=== PATIENT | female | born 1990 | race Two or more races ===

== ENCOUNTER 2022-11-24 12:21 | Observation (INO) | payer MEDICAID ==
[2022-11-24] MEDS ORDERED: PREN-96 PO (13:40)
== END 2022-11-24 14:08 | disposition home or self-care (01) ==
LOC: UNDOADMOB 12:21 → LDRP 12:21 → UNDODISOB 14:08
PROVIDERS: ADMIT Obstetrics & Gynecology; ATTEND Obstetrics & Gynecology
DX: O24.419 Gestational diabetes mellitus in pregnancy, unspecified control (principal); Z3A.38 38 weeks gestation of pregnancy
CPT/HCPCS: 59025; 76818; 81002; 94760; G0378

== ENCOUNTER 2022-11-27 10:03 | Observation (INO) | payer MEDICAID ==
[~2022-11-27 10:03] MED LIST: PREN-96 PO
== END 2022-11-27 11:25 | disposition home or self-care (01) ==
LOC: LDRP 10:03
PROVIDERS: ADMIT Obstetrics & Gynecology; ATTEND Obstetrics & Gynecology
DX: Z34.83 Encounter for supervision of other normal pregnancy, third trimester (principal); Z3A.38 38 weeks gestation of pregnancy
CPT/HCPCS: 59025; 94760; G0378

== ENCOUNTER 2022-11-28 10:00 | Inpatient (IN) | payer MEDICAID ==
[2022-11-27 11:10] LABS: Basophils # (auto) 0.1 10 ^3/uL (0-0.2); Eosinophils # (auto) 0.1 10 ^3/uL (0-0.8); Monocytes # (auto) 0.4 10 ^3/uL (0-1.3); Monocytes % (auto) 5.1 % (0.0-12.0); White Blood Cell 7.3 10^3/uL (4.4-10.8)
[2022-11-27 11:12] LABS: Basophils % (auto) 0.7 % (0.0-2.0); Eosinophils % (auto) 1.3 % (0.0-7.0); Hematocrit 31.1 % (36.0-46.0); Hemoglobin 9.8 g/dL (12.2-16.2); Lymphocytes # (auto) 2.1 10 ^3/uL (0.4-5.4); Mean Corpuscular Hemoglobin 24.4 pg (28.0-32.0); Mean Corpuscular Hgb Conc. 31.6 g/dL (32.0-36.0); Mean Corpuscular Volume 77.1 fL (80.0-100.0); Neutrophils # (auto) 4.6 10 ^3/uL (1.6-8.6); Neutrophils % (auto) 63.9 % (37.0-80.0); Nucleated Red Blood Cells % 0.2 %; Red Blood Cells 4.04 10^6/uL (4.0-5.20); Red Cell Distribution Width 19.3 % (11.8-14.3)
[2022-11-27 11:41] LABS: Urine Bacteria FEW /hpf (None Seen); Urine Blood Negative /uL (Negative); Urine Mucus FEW (None Seen); Urine Specific Gravity 1.017 (1.001-1.035); Urine WBC 13 /hpf (0 - 5)
[2022-11-27 11:44] LABS: Albumin 2.3 g/dL (3.4-5.0); Calcium 8.4 mg/dL (8.5-10.1); Potassium 4.2 mmol/L (3.5-5.1)
[2022-11-27 11:47] LABS: Alcohol, Urine < 3.0 mg/dL (0-10); Amphetamine Screen, Urine NEGATIVE (NEGATIVE); BUN/Creatinine Ratio 16.4; Barbiturate Scree,Urine NEGATIVE (NEGATIVE); Benzodiazephine Screen, Urine NEGATIVE (NEGATIVE); Bilirubin, Total 0.4 mg/dL (0.2-1.0); Cannabinoid Screen, Urine NEGATIVE (NEGATIVE); Cocaine Screen, Urine NEGATIVE (NEGATIVE); Opiate Scree,Urine NEGATIVE (NEGATIVE); Phencyclidine Screen, Urine NEGATIVE (NEGATIVE); Total Protein 6.4 g/dL (6.4-8.2)
[2022-11-27 11:58] LABS: INR 0.87 (0.9-1.15); Partial Thromboplastin Time 26.4 sec (24.6-33.4)
[2022-11-28] VITALS (10 sets, daily range): BP systolic 90–113; BP diastolic 49–77
[~2022-11-28] VITALS: Ht 152.4 cm; Wt 90.7 kg
[2022-11-28] MEDS ORDERED: ceFAZolin 2 GM/D5W100ml 100 ML IV ONE (14:15)
[2022-11-28] MEDS ORDERED: LACTATED RINGER'S 1,000 ML IV SCH (14:15)
[2022-11-28] MEDS ORDERED: SODIUM CITR/CITRIC ACID ORAL SOLN 30 ML PO ONE (14:15)
[2022-11-28] MEDS ORDERED: LACTATED RINGER'S 1,000 ML IV ONE (14:15)
[2022-11-28] MEDS ORDERED: MORPHINE SULF PF 5 MG/10 ML VIAL ONE (16:02)
[2022-11-28] MEDS ORDERED: ONDANSETRON HCL 4 MG/2 ML VIAL IV PRN ×2 (16:15→17:45)
[2022-11-28] MEDS ORDERED: MORPHINE SULFATE 4 MG/ML SYR/VIAL IV PRN (16:15)
[2022-11-28] MEDS ORDERED: LACT. RINGERS/OXYTOCIN 20UNITS 1,000 ML IV SCH (16:15)
[2022-11-28] MEDS ORDERED: ACETAMINOPHEN IV 1000 MG/100ML (10MG/ML) IV PRN (16:15)
[2022-11-28] MEDS ORDERED: CLINDAMYCIN 900MG IV 50 ML IV ONE (16:15)
[2022-11-28] MEDS ORDERED: fentaNYL CITRATE 100 MCG/2 ML VL ONE ×2 (16:57→17:03)
[2022-11-28] MEDS ORDERED: ONDANSETRON HCL 4 MG/2 ML VIAL ONE (17:29)
[2022-11-28] MEDS ORDERED: oxyTOCIN 10 UNIT/ML 10ML VIAL ONE (17:29)
[2022-11-28] MEDS ORDERED: ePHEDrine SULFATE 50 MG/ML AMP ONE (17:29)
[2022-11-28] MEDS ORDERED: KETAMINE HCL 10 ML ONE (17:30)
[2022-11-28] MEDS ORDERED: NALOXONE HCL 0.4 MG/ML VIAL IV PRN (17:45)
[2022-11-28] MEDS ORDERED: NALBUPHINE HCL 10 MG/1ml INJECTION SUBCUT ONE (17:45)
[2022-11-28] MEDS ORDERED: KETOROLAC TROMETH 30 MG/ML 1ML VIAL IV PRN (17:45)
[2022-11-28] MEDS ORDERED: HYDROmorphone HCL 2 MG/ML VL/or syr IV PRN (17:45)
[2022-11-28] MEDS ORDERED: diphenhdrAMINE HCL 50 MG/1 ML VL IV PRN (17:45)
[2022-11-28] MEDS ORDERED: DexAMETHasone SOD PHOS 10MG/1ML VIAL INJ IV PRN (17:45)
[2022-11-28 19:36] LABS: Basophils # (auto) 0 10 ^3/uL (0-0.2); Basophils % (auto) 0.4 % (0.0-2.0); Eosinophils # (auto) 0 10 ^3/uL (0-0.8); Hemoglobin 9.2 g/dL (12.2-16.2); Monocytes # (auto) 0.3 10 ^3/uL (0-1.3); Nucleated Red Blood Cells % 0.1 %
[2022-11-28 19:39] LABS: Eosinophils % (auto) 0.3 % (0.0-7.0); Lymphocytes # (auto) 1.4 10 ^3/uL (0.4-5.4); Lymphocytes % (auto) 15.1 % (10.0-50.0); Mean Corpuscular Hgb Conc. 31.7 g/dL (32.0-36.0); Neutrophils # (auto) 7.3 10 ^3/uL (1.6-8.6); Neutrophils % (auto) 81.2 % (37.0-80.0); Red Blood Cells 3.66 10^6/uL (4.0-5.20); Red Cell Distribution Width 20.7 % (11.8-14.3)
[2022-11-28] MEDS: LACTATED RINGER'S 1,000 ML IV SCH (23:03)
[2022-11-28] MEDS: ceFAZolin 1GM/50ML 50 ML IV SCH (23:13)
[2022-11-29] VITALS (19 sets, daily range): BP systolic 87–109; BP diastolic 46–72
[2022-11-29] MEDS: LACTATED RINGER'S 1,000 ML IV SCH ×2 (00:15→05:44)
[2022-11-29] MEDS ORDERED: ACETAMINOPHEN IV 1000 MG/100ML (10MG/ML) IV PRN (01:00)
[2022-11-29] MEDS: ceFAZolin 1GM/50ML 50 ML IV SCH ×2 (07:02→14:57)
[2022-11-29 07:41] LABS: Basophils # (auto) 0 10 ^3/uL (0-0.2); Eosinophils # (auto) 0 10 ^3/uL (0-0.8); Eosinophils % (auto) 0.5 % (0.0-7.0); Lymphocytes # (auto) 1.6 10 ^3/uL (0.4-5.4); Monocytes # (auto) 0.4 10 ^3/uL (0-1.3); Monocytes % (auto) 4.7 % (0.0-12.0); Nucleated Red Blood Cells % 0.1 %
[2022-11-29 07:43] LABS: Basophils % (auto) 0.5 % (0.0-2.0); Hematocrit 25.2 % (36.0-46.0); Hemoglobin 8.3 g/dL (12.2-16.2); Lymphocytes % (auto) 18.8 % (10.0-50.0); Mean Corpuscular Hemoglobin 25.8 pg (28.0-32.0); Mean Corpuscular Hgb Conc. 32.9 g/dL (32.0-36.0); Mean Corpuscular Volume 78.2 fL (80.0-100.0); Neutrophils # (auto) 6.6 10 ^3/uL (1.6-8.6); Neutrophils % (auto) 75.5 % (37.0-80.0); Red Blood Cells 3.22 10^6/uL (4.0-5.20); Red Cell Distribution Width 19.6 % (11.8-14.3); White Blood Cell 8.7 10^3/uL (4.4-10.8)
[2022-11-29 08:06] LABS: RPR Non Reactive (Non Reactive)
[2022-11-29] MEDS ORDERED: HYDROcodone-ACET 5/325MG TAB PO PRN (09:00)
[2022-11-29] MEDS ORDERED: IBUPROFEN 800 MG TAB PO PRN (09:00)
[2022-11-29] MEDS ORDERED: IBUP800T26 PO (09:32)
[2022-11-29] MEDS ORDERED: ASCO1TAB27 PO (09:32)
[2022-11-29] MEDS ORDERED: HYDR-4902 PO (09:32)
[2022-11-29] MEDS ORDERED: DOCU100C10 PO (09:32)
[2022-11-29] MEDS ORDERED: FERR324T17 PO (09:32)
[2022-11-29] MEDS ORDERED: PREN-96 PO (09:32)
[2022-11-29] MEDS: HYDROcodone-ACET 5/325MG TAB PO PRN (12:41)
[2022-11-29] MEDS: DOCUSATE SOD 100 MG CAP PO SCH ×2 (12:41→22:22)
[2022-11-30 03:15] VITALS: BP 109/68
[2022-11-30 07:25] VITALS: BP 110/59
[2022-11-30] MEDS: HYDROcodone-ACET 5/325MG TAB PO PRN (07:44)
[2022-11-30 11:20] VITALS: BP 111/60
[2022-11-30] MEDS: DOCUSATE SOD 100 MG CAP PO SCH (12:23)
[2022-11-30] MEDS ORDERED: PREN29TA PO (14:41)
[2022-11-30] MEDS ORDERED: ASCO-56 PO (14:41)
[2022-11-30] MEDS ORDERED: IBUP800T26 PO (14:41)
[2022-11-30] MEDS ORDERED: HYDR-4902 PO ×2 (14:41→19:03)
[2022-11-30] MEDS ORDERED: FERR325T48 PO (14:41)
[2022-11-30] MEDS ORDERED: DOCU100C10 PO (14:41)
[2022-11-30 14:45] VITALS: BP 134/76
[2022-11-30 18:49] VITALS: BP 112/71
== END 2022-11-30 20:05 | disposition home or self-care (01) | DRG 539 ==
LOC: LDRP 14:06
PROVIDERS: ADMIT Obstetrics & Gynecology; ATTEND Obstetrics & Gynecology
PROC: 0UL70CZ Occlusion of Bilateral Fallopian Tubes with Extraluminal Device, Open Approach (ICD-10-PCS; 2022-11-28)
PROC: 10D00Z1 Extraction of Products of Conception, Low, Open Approach (ICD-10-PCS; principal; 2022-11-28 16:10)
DX: O34.211 Maternal care for low transverse scar from previous cesarean delivery (principal); O24.429 Gestational diabetes mellitus in childbirth, unspecified control; Z37.0 Single live birth; O99.02 Anemia complicating childbirth; Z20.822 Contact with and (suspected) exposure to COVID-19; Z3A.38 38 weeks gestation of pregnancy; Z91.199 Patient's noncompliance with other medical treatment and regimen due to unspecified reason
CPT/HCPCS: 36415; 59025; 80053; 80307; 81001; 82948; 82962; 84112; 85025; 85610; 85730; 86592; 86850; 86900; 86901; 94760; 94762; 96360; 96361; 96366; G0378; J0131; J0690; J2405; J2590